=== PATIENT | female | born 1955 | race Caucasian/White ===

== ENCOUNTER → 2024-05-20 | Outpatient (CLI) | payer MEDICARE, SELFPAY ==
[~2024-05-20] MED LIST: LOSA50TA28 PO; ROSU5TAB40 PO
== END ==
LOC: M ONCR 07:25
PROVIDERS: ATTEND General Practice
DX: C50.512 Malignant neoplasm of lower-outer quadrant of left female breast (principal); Z98.890 Other specified postprocedural states; Z77.090 Contact with and (suspected) exposure to asbestos; Z92.21 Personal history of antineoplastic chemotherapy; Z98.51 Tubal ligation status; Z80.52 Family history of malignant neoplasm of bladder; Z80.42 Family history of malignant neoplasm of prostate; Z80.8 Family history of malignant neoplasm of other organs or systems; Z80.0 Family history of malignant neoplasm of digestive organs; Z80.49 Family history of malignant neoplasm of other genital organs; Z88.0 Allergy status to penicillin; Z88.1 Allergy status to other antibiotic agents

== ENCOUNTER 2024-06-26 08:25 | Outpatient (RCR) | payer MEDICARE | END 2024-06-27 | LOC: M ONCR 08:25 | PROVIDERS: ATTEND General Practice | DX: Z51.0 Encounter for antineoplastic radiation therapy (principal); C50.512 Malignant neoplasm of lower-outer quadrant of left female breast ==

== ENCOUNTER 2024-07-13 08:28 | Outpatient (RCR) | payer MEDICARE | END 2024-07-27 | LOC: M ONCR 08:28 | PROVIDERS: ATTEND General Practice | DX: Z51.0 Encounter for antineoplastic radiation therapy (principal); C50.512 Malignant neoplasm of lower-outer quadrant of left female breast ==

== ENCOUNTER → 2025-01-19 | Outpatient (CLI) | payer MEDICARE ==
[~2025-01-19] MED LIST changes: -ROSU5TAB40 PO; +ROSU5TAB49 PO
== END ==
LOC: M ONCR 09:08
PROVIDERS: ATTEND General Practice
DX: Z08 Encounter for follow-up examination after completed treatment for malignant neoplasm (principal); Z85.3 Personal history of malignant neoplasm of breast; Z98.890 Other specified postprocedural states; Z92.3 Personal history of irradiation; Z88.0 Allergy status to penicillin; Z88.1 Allergy status to other antibiotic agents